=== PATIENT | male | born 2000 | race Caucasian/White ===

== ENCOUNTER 2023-04-05 20:10 | Emergency (ER) | payer BC, SELFPAY ==
[2023-04-05 20:47] LABS: Actual Bicarbonate (HCO3v) 4.4 mEq/L (22-28); Calcium, Ionized (venous) 1.26 mmol/L (1.16-1.32); Chloride (VBG) 95 mmol/L (98-106); Critical Notified By: CP.PH; Hematocrit-VBG 54 % (42.0-52.0); Hemoglobin (Hb) 18.4 g/dL (13.2-17.3); Potassium (VBG) 5.85 mmol/L (3.70-5.30); Puncture Site Other Site; Sodium 136 mmol/L (133-146); pH (venous) 6.813 (7.32-7.43)
[2023-04-05] MEDS ORDERED: Insulin Regular 300 UNITS/3 ML VIAL ONE (20:53)
[2023-04-05] MEDS ORDERED: INSULIN REGULAR IN 0.9 % NACL 100 UNITS/100 ML BAG ONE (20:53)
[2023-04-05 21:00] LABS: #Basophils 0.2 10x3/uL (0.0-0.2); #Eosinphils 0.1 10x3/uL (0.0-0.5); #Monocytes 1.2 10x3/uL (0.0-1.1); #Neutrophils 16.5 10x3/uL (1.5-8.4); %Eosinophils 0.4 % (0.0-6.0); %Lymphocytes 19.4 % (18.0-47.0); %Monocytes 5.3 % (0.0-10.0); %Neutrophils 71.7 % (40.0-75.0); Hematocrit 52.5 % (38.8-50.0); Hemoglobin 17.5 g/dL (13.5-17.5); Mean Corpuscular HGB CONC 33.3 g/dL (32.0-36.0); Mean Corpuscular Hemoglobin 30.8 pg (27.0-33.0); Mean Corpuscular Volume 92.3 fl (81.2-95.1); Mean Platelet Volume 10.2 fl (7.4-10.4); Platelet Count 462 10x3/uL (150-450); RBC Distribution Width 12.6 % (11.5-14.5); Red Blood Cell (RBC) Count 5.69 10x6/uL (4.32-5.72)
[2023-04-05 21:18] LABS: Acetaminophen Less than 10 mcg/mL (10.0-30.0); Alcohol Less than 10.0 mg/dL (Less than 10); Lipase 18 U/L (8-78); Magnesium 2.6 mg/dL (1.6-2.6); Salicylate Less than 8.0 mg/dL (15.0-30.0)
[2023-04-05 21:19] LABS: ALT (SGPT) 26 U/L (8-55); AST (SGOT) 25 U/L (5-34); Alkaline Phosphatase 120 U/L (40-110); BUN (Urea Nitrogen) 30 mg/dL (8.9-20.6); Bilirubin, Total 0.3 mg/dL (0.2-1.2); Calc. Creatinine Clearance 0 mL/min (70-130); Calcium 9.9 mg/dL (7.8-10.44); Chloride 94 mmol/L (98-107); Estimated GFR 41; Globulin 3.2 g/dL (2.4-3.5); Protein, Total 8.2 g/dL (6.0-8.3); Sodium 132 mmol/L (136-145)
[2023-04-05] MEDS ORDERED: Lorazepam 2 MG/ML VIAL ONE (21:20)
[2023-04-05 21:23] LABS: Carbon Dioxide Less than 8 mmol/L (22-29); Glucose 766 mg/dL (70-105); Potassium 6.3 mmol/L (3.5-5.1)
[2023-04-05 21:25] LABS: Troponin I Less than 0.010 ng/mL (< 0.028)
[2023-04-05 22:51] LABS: Glucose 581 mg/dL (70-105)
[2023-04-05 23:11] LABS: Actual Bicarbonate (HCO3v) 4.9 mEq/L (22-28); Base Excess -24.8 mEq/L (-2 - +2); Calcium, Ionized (venous) 1.18 mmol/L (1.16-1.32); Chloride (VBG) 103 mmol/L (98-106); Critical Notified By: CP.PH; Hematocrit-VBG 49 % (42.0-52.0); Hemoglobin (Hb) 16.7 g/dL (13.2-17.3); Potassium (VBG) 5.88 mmol/L (3.70-5.30); Puncture Site Other Site; Sodium 138 mmol/L (133-146); pH (venous) 7.007 (7.32-7.43)
[2023-04-06 00:17] LABS: Lactic Acid 1.4 mmol/L (0.5-2.2)
[2023-04-06 00:51] LABS: BUN (Urea Nitrogen) 27 mg/dL (8.9-20.6); Calc. Creatinine Clearance 0 mL/min (70-130); Calcium 8.7 mg/dL (7.8-10.44); Chloride 108 mmol/L (98-107); Estimated GFR 55; Glucose 382 mg/dL (70-105); Potassium 5.2 mmol/L (3.5-5.1); Sodium 137 mmol/L (136-145)
[2023-04-06 00:54] LABS: Carbon Dioxide Less than 8 mmol/L (22-29)
[2023-04-06] MEDS ORDERED: Cefepime 2 GM VIAL ONE (01:07)
[2023-04-06 01:29] LABS: Bilirubin Neg (Negative); Blood, Urine 25 (Negative); Clarity Clear (Clear); Glucose, Urine (Dipstick) >=1000 mg/dL (Negative); Ketone, Urine 150 mg/dL (Negative); Leukocyte Negative (Negative); Nitrite Negative (Negative); Protein, Urine (Dipstick) 30 mg/dl (Neg-Trace); Urobilinogen Normal mg/dL (Less than 2)
[2023-04-06 01:37] LABS: Amphetamine Not Detected (NotDetected); Barbiturates Screen Not Detected (NotDetected); Benzodiazepine Screen Not Detected (NotDetected); Cocaine Metabolite Screen Not Detected (NotDetected); Methadone Not Detected (NotDetected); Methamphetamine Not Detected (NotDetected); Opiate Screen Not Detected (NotDetected); Oxycodone Screen Not Detected (NotDetected); Phencyclidine (PCP) Not Detected (NotDetected); THC/Cannabinoid Screen Not Detected (NotDetected); Tricyclic Screen Not Detected (NotDetected)
[2023-04-06 01:45] LABS: Bacteria/HPF Rare-Few HPF (None Seen); CAUTI Indications for Culture Alt mental st,lethar; Mucous/LPF Rare LPF (<2+); RBC/HPF 0-3 HPF (0-3); WBC/HPF 0-3 HPF (0-3)
[2023-04-06 01:46] LABS: Urine Culture Reflex No No
[2023-04-06] MEDS ORDERED: Vancomycin 1 GM VIAL ONE (01:58)
== END 2023-04-06 03:03 | disposition short-term general hospital (02) ==
LOC: CSHERS 20:10
DX: E10.10 Type 1 diabetes mellitus with ketoacidosis without coma (principal); R41.82 Altered mental status, unspecified; F17.290 Nicotine dependence, other tobacco product, uncomplicated
CPT/HCPCS: 36415; 36416; 51702; 70450; 71045; 80048; 80053; 80306; 80307; 81001; 82010; 82805; 83605; 83690; 83735; 84484; 85025; 87040; 87086; 87149; 93005; 93010; 96361; 96365; 96374; 96375; J0692; J1815; J2060; J3370